=== PATIENT | male | born 1990 | race Two or more races ===

== ENCOUNTER 2024-02-15 16:15 | Outpatient (RCR) | payer MEDICARE, MEDICAID, SELFPAY | END 2024-02-15 23:59 | disposition home or self-care (01) | LOC: PURB 16:15 | PROVIDERS: ATTENDING PHYSICIAN Internal Medicine Pulmonary Disease; FAMILY PHYSICIAN Family Medicine | DX: J98.2 Interstitial emphysema (principal); J96.10 Chronic respiratory failure, unspecified whether with hypoxia or hypercapnia | CPT/HCPCS: G0237; G0239 ==

== ENCOUNTER 2024-03-19 16:15 | Outpatient (RCR) | payer MEDICARE, MEDICAID, SELFPAY | END 2024-03-23 23:59 | disposition home or self-care (01) | LOC: PURB 16:15 | PROVIDERS: ATTENDING PHYSICIAN Internal Medicine Pulmonary Disease; FAMILY PHYSICIAN Family Medicine | DX: J47.9 Bronchiectasis, uncomplicated (principal); J96.10 Chronic respiratory failure, unspecified whether with hypoxia or hypercapnia; Z99.81 Dependence on supplemental oxygen | CPT/HCPCS: G0239 ==

== ENCOUNTER 2024-04-11 16:15 | Outpatient (RCR) | payer MEDICARE, MEDICAID, SELFPAY | END 2024-04-11 23:59 | disposition home or self-care (01) | LOC: PURB 16:15 | PROVIDERS: ATTENDING PHYSICIAN Internal Medicine Pulmonary Disease; FAMILY PHYSICIAN Family Medicine | DX: J98.2 Interstitial emphysema (principal); J96.10 Chronic respiratory failure, unspecified whether with hypoxia or hypercapnia; Z99.81 Dependence on supplemental oxygen | CPT/HCPCS: G0239 ==

== ENCOUNTER 2024-04-25 16:15 | Outpatient (RCR) | payer MEDICARE, MEDICAID, SELFPAY | END 2024-05-24 11:36 | disposition home or self-care (01) | LOC: PURB 16:15 | PROVIDERS: ATTENDING PHYSICIAN Internal Medicine Pulmonary Disease; FAMILY PHYSICIAN Family Medicine | DX: J47.9 Bronchiectasis, uncomplicated (principal) | CPT/HCPCS: G0239 ==

== ENCOUNTER 2024-10-17 09:30 | Outpatient (RCR) | payer MEDICARE, MEDICAID, SELFPAY | END 2024-10-21 09:39 | disposition home or self-care (01) | LOC: PURB 09:30 | PROVIDERS: ATTENDING PHYSICIAN Internal Medicine Pulmonary Disease; FAMILY PHYSICIAN Family Medicine | DX: J44.9 Chronic obstructive pulmonary disease, unspecified (principal); Z94.2 Lung transplant status | CPT/HCPCS: G0237; G0239 ==

== ENCOUNTER 2024-11-21 09:30 | Outpatient (RCR) | payer MEDICARE, MEDICAID, SELFPAY | END 2024-11-21 23:59 | disposition home or self-care (01) | LOC: PURB 09:30 | PROVIDERS: ATTENDING PHYSICIAN Internal Medicine Pulmonary Disease; FAMILY PHYSICIAN Family Medicine | DX: J44.9 Chronic obstructive pulmonary disease, unspecified (principal); Z94.2 Lung transplant status | CPT/HCPCS: G0239 ==

== ENCOUNTER 2024-12-19 09:30 | Outpatient (RCR) | payer MEDICARE, MEDICAID, SELFPAY | END 2024-12-20 11:01 | disposition home or self-care (01) | LOC: PURB 09:30 | PROVIDERS: ATTENDING PHYSICIAN Internal Medicine Pulmonary Disease; FAMILY PHYSICIAN Family Medicine | DX: J44.9 Chronic obstructive pulmonary disease, unspecified (principal); Z94.2 Lung transplant status | CPT/HCPCS: G0239 ==

== ENCOUNTER 2025-01-09 09:30 | Outpatient (RCR) | payer MEDICARE, MEDICAID, SELFPAY | END 2025-01-13 10:32 | disposition home or self-care (01) | LOC: PURB 09:30 | PROVIDERS: ATTENDING PHYSICIAN Internal Medicine Pulmonary Disease; FAMILY PHYSICIAN Family Medicine | DX: J44.9 Chronic obstructive pulmonary disease, unspecified (principal); Z94.2 Lung transplant status | CPT/HCPCS: G0239 ==

== ENCOUNTER 2025-01-14 08:00 | Outpatient (RCR) | payer SELFPAY | END 2025-01-14 23:59 | disposition home or self-care (01) | LOC: PURBM 08:00 | PROVIDERS: ATTENDING PHYSICIAN Internal Medicine Pulmonary Disease | DX: J44.9 Chronic obstructive pulmonary disease, unspecified (principal); Z94.2 Lung transplant status ==